=== PATIENT | female | born 1935 | race Caucasian/White ===

== ENCOUNTER 2022-04-05 16:03 | Inpatient (IN) ==
[2022-04-05] MEDS ORDERED: Heparin - STEMI 5,000 UNITS/ML 1 ml VIAL IV ONE (16:52)
[2022-04-05] MEDS ORDERED: Midazolam 5 mg/5 ml VIAL 1 mg/ml 5 ml VIAL (5 mg) ONE (16:57)
[2022-04-05] MEDS ORDERED: Heparin 1,000 UNIT/ML 10 ml (10,000 UNITS) CATHLAB/DIALYSIS ONE (16:57)
[2022-04-05] MEDS ORDERED: nitroGLYCERIN DRIP 25,000 MCG/250 ML BTL ONE (16:57)
[2022-04-05] MEDS ORDERED: Heparin 2 UNITS/ML 1000 mls 0 ML IV ONE (16:57)
[2022-04-05] MEDS ORDERED: VERAPAMIL 2.5 MG/ML 2 ML VIAL ** 5 mg/2 ml ONE (16:57)
[2022-04-05] MEDS ORDERED: fentaNYL 100 mcg/2 ml 50 MCG/ML VIAL ONE (16:57)
[2022-04-05] MEDS ORDERED: Iohexol 350 (CONTRAST) 100 ML PAK IV ONE (16:58)
[2022-04-05] MEDS ORDERED: Lidocaine 1% MPF 5 ML VIAL ONE (16:58)
[2022-04-05 17:13] LABS: ABS Eosinophils 0.1 10^3/ul (0-0.6); ABS Lymphocytes 0.8 10^3/ul (1.0-4.8); ABS Monocytes 0.9 10^3/ul (0-0.8); ABS Neutrophils 6.4 10^3/ul (1.5-7.7); Eosinophil % 1.2 %; Hematocrit 40 % (35-47); Hemoglobin 13.1 g/dL (12.0-16.0); Lymphocyte % 9.4 %; Mean Corpuscular HGB Conc 33 g/dL (31-36); Mean Corpuscular Hemoglobin 32 pg (27-31); Mean Corpuscular Volume 100 fL (80-97); Mean Platelet Volume 8.9 fL (7.4-10.4); Nucleated Red Blood Cells % 0.1; Platelet Count 205 10^3/uL (150-450); Red Blood Count 4.04 10^6 /uL (3.70-4.87); Red Cell Distribution Width 15 % (10-15); White Blood Count 8.2 10^3/uL (3.5-10.8)
[2022-04-05] MEDS ORDERED: Furosemide 40 mg/4 ml IV VIAL IV ONE (17:21)
[2022-04-05 17:27] LABS: Activated Partial Thrombo Time 35.7 seconds (26.0-38.0); INR 1.07 (0.89-1.11)
[2022-04-05] MEDS ORDERED: Heparin DRIP 25,000 UNITS BAG 25,000 UNITS/500 ML BAG IV SCH (17:30)
[2022-04-05 17:33] LABS: Albumin 4.2 g/dL (3.2-5.2); Calcium 9.7 mg/dL (8.6-10.3); Potassium 4.7 mmol/L (3.5-5.0)
[2022-04-05 17:39] LABS: Albumin/Globulin Ratio 1.6 (1-3); C Reactive Protein 8.72 mg/L (<8.01); Globulin 2.6 g/dL (2-4); Total Protein 6.8 g/dL (6.4-8.9); eGFR CKD-EPI 49.5 (>60)
[2022-04-05 18:22] LABS: PCO2 Arterial 33 mmHg (35-45); PO2 Arterial 93 mmHg (80-100)
[2022-04-05 18:33] LABS: High Sensitivity Troponin 1 Hr 75 pg/mL (<15)
[2022-04-05] MEDS ORDERED: PANCRELIPASE 24000 UNIT PO SCH (21:00)
[2022-04-05 21:52] LABS: Magnesium 1.9 mg/dL (1.9-2.7)
[2022-04-05 21:58] LABS: Phosphorus 3.8 mg/dL (2.5-5.0)
[2022-04-06 05:10] LABS: ABS Eosinophils 0.2 10^3/ul (0-0.6); ABS Monocytes 0.9 10^3/ul (0-0.8); ABS Neutrophils 4.8 10^3/ul (1.5-7.7); Eosinophil % 3.4 %; Hematocrit 37 % (35-47); Hemoglobin 11.9 g/dL (12.0-16.0); Lymphocyte % 14.6 %; Mean Corpuscular HGB Conc 32 g/dL (31-36); Mean Corpuscular Hemoglobin 31 pg (27-31); Mean Corpuscular Volume 98 fL (80-97); Mean Platelet Volume 8.8 fL (7.4-10.4); Platelet Count 175 10^3/uL (150-450); Red Blood Count 3.79 10^6 /uL (3.70-4.87); Red Cell Distribution Width 15 % (10-15); White Blood Count 7.1 10^3/uL (3.5-10.8)
[2022-04-06 05:37] LABS: Calcium 9.2 mg/dL (8.6-10.3); Potassium 4.1 mmol/L (3.5-5.0); eGFR CKD-EPI 48.5 (>60)
[2022-04-06] MEDS ORDERED: NON FORMULARY MED (Bisoprolol-Hydrochlorothiazide 10-6.25 mg tablet) PO SCH (09:00)
[2022-04-06] MEDS ORDERED: LINAGLIPTIN 5 MG PO SCH (09:00)
[2022-04-06] MEDS: NF: Pancrelipase 24,000 units (NF) PO SCH ×3 (09:43→17:09)
[2022-04-06] MEDS ORDERED: Furosemide 40 mg/4 ml IV VIAL IV ONE (10:37)
[2022-04-06] MEDS: PANCRELIPASE 24000 UNIT PO SCH (17:55)
[2022-04-06] MEDS: Nitroglycerin 0.2 mg/hr PATCH (5 mg) TRANSDERM SCH (18:01)
[2022-04-07] MEDS ORDERED: Acetaminophen IV 1 GM/100ML 1,000 MG/100 ML BAG IV PRN (03:50)
[2022-04-07 04:59] LABS: ABS Eosinophils 0.2 10^3/ul (0-0.6); ABS Lymphocytes 0.9 10^3/ul (1.0-4.8); ABS Monocytes 1.2 10^3/ul (0-0.8); ABS Neutrophils 6.4 10^3/ul (1.5-7.7); Hematocrit 37 % (35-47); Hemoglobin 12.1 g/dL (12.0-16.0); Mean Corpuscular HGB Conc 33 g/dL (31-36); Mean Corpuscular Hemoglobin 32 pg (27-31); Mean Corpuscular Volume 97 fL (80-97); Mean Platelet Volume 8.7 fL (7.4-10.4); Platelet Count 194 10^3/uL (150-450); Red Blood Count 3.82 10^6 /uL (3.70-4.87); Red Cell Distribution Width 15 % (10-15); White Blood Count 8.7 10^3/uL (3.5-10.8)
[2022-04-07 05:28] LABS: Calcium 8.9 mg/dL (8.6-10.3); Magnesium 1.6 mg/dL (1.9-2.7); Potassium 3.9 mmol/L (3.5-5.0); eGFR CKD-EPI 45.1 (>60)
[2022-04-07] MEDS ORDERED: Magnesium Sulfate 2 gm BAG 2 GM/50 ML BAG IVPB ONE (06:19)
[2022-04-07] MEDS ORDERED: Potassium Chlor 20 meq TAB.ER PO ONE (07:34)
[2022-04-07] MEDS ORDERED: Magnesium Sulfate IV 1GM/100ML 1 GM/100 ML BAG IV ONE (08:38)
[2022-04-07] MEDS ORDERED: Nitroglycerin 0.2 mg/hr PATCH (5 mg) TRANSDERM SCH (09:00)
[2022-04-07] MEDS: PANCRELIPASE 24000 UNIT PO SCH ×3 (09:16→17:47)
[2022-04-07 09:50] LABS: Ferritin 150.9 ng/mL (11-307)
[2022-04-07] MEDS: Nitroglycerin 0.2 mg/hr PATCH (5 mg) TRANSDERM SCH (17:47)
[2022-04-08 05:15] LABS: ABS Eosinophils 0.4 10^3/ul (0-0.6); ABS Lymphocytes 0.9 10^3/ul (1.0-4.8); ABS Monocytes 1.2 10^3/ul (0-0.8); ABS Neutrophils 6.1 10^3/ul (1.5-7.7); Eosinophil % 4.3 %; Hematocrit 39 % (35-47); Hemoglobin 12.6 g/dL (12.0-16.0); Lymphocyte % 10.6 %; Mean Corpuscular HGB Conc 33 g/dL (31-36); Mean Corpuscular Hemoglobin 32 pg (27-31); Mean Corpuscular Volume 98 fL (80-97); Platelet Count 202 10^3/uL (150-450); Red Blood Count 3.94 10^6 /uL (3.70-4.87); Red Cell Distribution Width 15 % (10-15); White Blood Count 8.6 10^3/uL (3.5-10.8)
[2022-04-08 05:48] LABS: Calcium 8.9 mg/dL (8.6-10.3); Magnesium 2.4 mg/dL (1.9-2.7); Potassium 4.1 mmol/L (3.5-5.0); eGFR CKD-EPI 41.7 (>60)
[2022-04-08] MEDS: PANCRELIPASE 24000 UNIT PO SCH ×3 (09:17→16:50)
[2022-04-08] MEDS ORDERED: Enoxaparin 40 MG/0.4 ML SYR SUBCUT SCH (10:00)
[2022-04-08] MEDS: Enoxaparin 30 MG/0.3 ML SYR SUBCUT SCH (13:05)
[2022-04-08] MEDS: Nitroglycerin 0.2 mg/hr PATCH (5 mg) TRANSDERM SCH (18:34)
[2022-04-09 07:54] LABS: ABS Eosinophils 0.3 10^3/ul (0-0.6); ABS Lymphocytes 0.7 10^3/ul (1.0-4.8); ABS Monocytes 1.1 10^3/ul (0-0.8); ABS Neutrophils 5.8 10^3/ul (1.5-7.7); Hematocrit 38 % (35-47); Hemoglobin 12.5 g/dL (12.0-16.0); Lymphocyte % 8.9 %; Mean Corpuscular HGB Conc 33 g/dL (31-36); Mean Corpuscular Hemoglobin 32 pg (27-31); Mean Corpuscular Volume 97 fL (80-97); Nucleated Red Blood Cells % 0.1; Platelet Count 174 10^3/uL (150-450); Red Blood Count 3.93 10^6 /uL (3.70-4.87); Red Cell Distribution Width 15 % (10-15)
[2022-04-09 08:00] LABS: Calcium 8.6 mg/dL (8.6-10.3); Magnesium 2.1 mg/dL (1.9-2.7); Potassium 4.1 mmol/L (3.5-5.0); eGFR CKD-EPI 54.9 (>60)
[2022-04-09] MEDS: PANCRELIPASE 24000 UNIT PO SCH ×3 (08:21→16:42)
[2022-04-09] MEDS: Enoxaparin 30 MG/0.3 ML SYR SUBCUT SCH (12:10)
[2022-04-09] MEDS: Calcium Carb (TUMS) 500 mg CHEW TAB PO SCH ×2 (18:10→20:34)
[2022-04-10 06:43] LABS: ABS Eosinophils 0.4 10^3/ul (0-0.6); ABS Lymphocytes 1.1 10^3/ul (1.0-4.8); ABS Monocytes 1.1 10^3/ul (0-0.8); ABS Neutrophils 5.5 10^3/ul (1.5-7.7); Eosinophil % 4.8 %; Hematocrit 42 % (35-47); Hemoglobin 13.7 g/dL (12.0-16.0); Lymphocyte % 13.5 %; Mean Corpuscular HGB Conc 33 g/dL (31-36); Mean Corpuscular Hemoglobin 32 pg (27-31); Mean Corpuscular Volume 99 fL (80-97); Mean Platelet Volume 8.5 fL (7.4-10.4); Platelet Count 213 10^3/uL (150-450); Red Blood Count 4.27 10^6 /uL (3.70-4.87); Red Cell Distribution Width 15 % (10-15); White Blood Count 8.1 10^3/uL (3.5-10.8)
[2022-04-10 07:41] LABS: Calcium 9.3 mg/dL (8.6-10.3); Phosphorus 3.7 mg/dL (2.5-5.0); Potassium 4.4 mmol/L (3.5-5.0); eGFR CKD-EPI 48.5 (>60)
[2022-04-10] MEDS ORDERED: Aminophylline 25 MG/ML VIAL ONE (08:58)
[2022-04-10] MEDS ORDERED: Regadenoson 0.4 MG/5 ML SYRINGE ONE (08:58)
[2022-04-10] MEDS ORDERED: Ondansetron 4 mg VIAL 2 MG/ML 2 ml VIAL ONE (09:24)
[2022-04-10] MEDS: PANCRELIPASE 24000 UNIT PO SCH ×3 (10:24→14:48)
[2022-04-10] MEDS: Enoxaparin 30 MG/0.3 ML SYR SUBCUT SCH (13:44)
[2022-04-10] MEDS: Iron Sucrose 200 MG in NS 0.9% 100 ml BAG 100 ML IVPB SCH (13:44)
[2022-04-10] MEDS: Magnesium Hydroxide LIQ 30 ML UDC PO PRN (23:28)
[2022-04-11 07:57] LABS: Calcium 9.1 mg/dL (8.6-10.3); Magnesium 2.1 mg/dL (1.9-2.7); Potassium 4.5 mmol/L (3.5-5.0); eGFR CKD-EPI 54.9 (>60)
[2022-04-11] MEDS: PANCRELIPASE 24000 UNIT PO SCH ×3 (10:12→17:15)
[2022-04-11] MEDS: Iron Sucrose 200 MG in NS 0.9% 100 ml BAG 100 ML IVPB SCH (16:38)
[2022-04-11] MEDS: Enoxaparin 30 MG/0.3 ML SYR SUBCUT SCH (16:40)
[2022-04-11] MEDS: Magnesium Hydroxide LIQ 30 ML UDC PO PRN (21:17)
[2022-04-12] MEDS ORDERED: Senna TAB 8.6 mg TAB PO ONE (07:43)
[2022-04-12] MEDS ORDERED: Furosemide 40 mg/4 ml IV VIAL IV ONE (10:08)
[2022-04-12] MEDS: PANCRELIPASE 24000 UNIT PO SCH ×3 (10:16→17:56)
[2022-04-12] MEDS: Enoxaparin 30 MG/0.3 ML SYR SUBCUT SCH (12:52)
[2022-04-12] MEDS: Iron Sucrose 200 MG in NS 0.9% 100 ml BAG 100 ML IVPB SCH (15:06)
[2022-04-13 07:05] LABS: Calcium 9.1 mg/dL (8.6-10.3); Magnesium 2.2 mg/dL (1.9-2.7); eGFR CKD-EPI 51.8 (>60)
[2022-04-13] MEDS: PANCRELIPASE 24000 UNIT PO SCH ×3 (08:24→16:16)
[2022-04-13] MEDS: Enoxaparin 30 MG/0.3 ML SYR SUBCUT SCH (12:26)
[2022-04-13] MEDS: Iron Sucrose 200 MG in NS 0.9% 100 ml BAG 100 ML IVPB SCH (16:17)
[2022-04-14 06:20] VITALS: BP 116/62
[2022-04-14] MEDS: PANCRELIPASE 24000 UNIT PO SCH (07:40)
== END 2022-04-14 09:14 | DRG 280 ==
LOC: ED 16:03 → SUATTDRO 18:29 → EDHOLD 18:29 → ICU 20:05 → MEDTELE 04-09 05:00
PROVIDERS: ADMIT Internal Medicine Critical Care Medicine; ATTEND Internal Medicine

== ENCOUNTER 2022-04-14 07:51 | Inpatient (IN) ==
[2022-04-14] MEDS: Enoxaparin 30 MG/0.3 ML SYR SUBCUT SCH (12:17)
[2022-04-14] MEDS: PTO:Pancrelipase 24,000 units (NF) PO SCH ×2 (12:19→16:43)
[2022-04-14] MEDS ORDERED: Iron Sucrose 200 MG in NS 0.9% 100 ml BAG 100 ML IVPB ONE (15:00)
[2022-04-14] MEDS: Senna TAB 8.6 mg TAB PO PRN (20:08)
[2022-04-14] MEDS: Magnesium Hydroxide LIQ 30 ML UDC PO PRN (20:09)
[2022-04-15 06:05] LABS: ABS Eosinophils 0.2 10^3/ul (0-0.6); ABS Lymphocytes 0.9 10^3/ul (1.0-4.8); ABS Monocytes 1.5 10^3/ul (0-0.8); ABS Neutrophils 5.8 10^3/ul (1.5-7.7); Eosinophil % 2.4 %; Hematocrit 41 % (35-47); Hemoglobin 13.9 g/dL (12.0-16.0); Lymphocyte % 10.7 %; Mean Corpuscular HGB Conc 34 g/dL (31-36); Mean Corpuscular Hemoglobin 33 pg (27-31); Mean Corpuscular Volume 97 fL (80-97); Mean Platelet Volume 8.7 fL (7.4-10.4); Platelet Count 200 10^3/uL (150-450); Red Blood Count 4.18 10^6 /uL (3.70-4.87); Red Cell Distribution Width 15 % (10-15); White Blood Count 8.4 10^3/uL (3.5-10.8)
[2022-04-15 06:45] LABS: Albumin 3.5 g/dL (3.2-5.2); Albumin/Globulin Ratio 1.5 (1-3); Calcium 9.1 mg/dL (8.6-10.3); Globulin 2.4 g/dL (2-4); Potassium 4.3 mmol/L (3.5-5.0); Total Protein 5.9 g/dL (6.4-8.9); eGFR CKD-EPI 51.2 (>60)
[2022-04-15] MEDS: PTO:Pancrelipase 24,000 units (NF) PO SCH ×3 (09:20→17:13)
[2022-04-15] MEDS: Enoxaparin 30 MG/0.3 ML SYR SUBCUT SCH (10:09)
[2022-04-15 10:35] LABS: Magnesium 2.3 mg/dL (1.9-2.7)
[2022-04-15] MEDS: Senna TAB 8.6 mg TAB PO PRN (21:04)
[2022-04-16] MEDS: PTO:Pancrelipase 24,000 units (NF) PO SCH ×3 (08:53→16:57)
[2022-04-16] MEDS: Enoxaparin 30 MG/0.3 ML SYR SUBCUT SCH (08:58)
[2022-04-16] MEDS: Magnesium Hydroxide LIQ 30 ML UDC PO PRN (09:03)
[2022-04-16] MEDS ORDERED: Polyethylene Glycol 3350 17 GM PACKET PO PRN (09:29)
[2022-04-17] MEDS: Enoxaparin 30 MG/0.3 ML SYR SUBCUT SCH (08:39)
[2022-04-17] MEDS: PTO:Pancrelipase 24,000 units (NF) PO SCH ×3 (08:40→16:58)
[2022-04-18] MEDS: PTO:Pancrelipase 24,000 units (NF) PO SCH ×4 (09:38→17:31)
[2022-04-18] MEDS: Enoxaparin 30 MG/0.3 ML SYR SUBCUT SCH (09:39)
[2022-04-19] MEDS: PTO:Pancrelipase 24,000 units (NF) PO SCH ×3 (09:04→17:15)
[2022-04-19] MEDS: Enoxaparin 30 MG/0.3 ML SYR SUBCUT SCH (09:09)
[2022-04-19 18:56] LABS: Urine Appearance Clear; Urine Bilirubin Negative (Negative); Urine Blood 2+ (Negative); Urine Color Yellow; Urine Glucose 3+(>=500 mg/dL) (Negative); Urine Ketones Negative (Negative); Urine Nitrite Negative (Negative); Urine Protein Negative (Negative); Urine Specific Gravity 1.006 (1.002-1.030); Urine Urobilinogen Negative (Negative)
[2022-04-19 19:08] LABS: Urine Bacteria 1+ (Absent); Urine Red Blood Cell 2+(6-10/hpf) (Absent); Urine Squamous Epithelial Cell Present (Absent); Urine White Blood Cell 1+(6-10/hpf) (Absent)
[2022-04-20] MEDS: PTO:Pancrelipase 24,000 units (NF) PO SCH ×3 (08:15→16:47)
[2022-04-20] MEDS: Enoxaparin 30 MG/0.3 ML SYR SUBCUT SCH (11:18)
[2022-04-21 05:44] VITALS: BP 102/61
[2022-04-21 07:35] LABS: ABS Eosinophils 0.3 10^3/ul (0-0.6); ABS Lymphocytes 0.6 10^3/ul (1.0-4.8); ABS Monocytes 0.9 10^3/ul (0-0.8); ABS Neutrophils 4.8 10^3/ul (1.5-7.7); Eosinophil % 4.1 %; Hematocrit 44 % (35-47); Hemoglobin 14.2 g/dL (12.0-16.0); Lymphocyte % 9.7 %; Mean Corpuscular HGB Conc 33 g/dL (31-36); Mean Corpuscular Hemoglobin 32 pg (27-31); Mean Corpuscular Volume 98 fL (80-97); Mean Platelet Volume 9.2 fL (7.4-10.4); Platelet Count 216 10^3/uL (150-450); Red Blood Count 4.47 10^6 /uL (3.70-4.87); Red Cell Distribution Width 15 % (10-15); White Blood Count 6.6 10^3/uL (3.5-10.8)
[2022-04-21 07:54] LABS: Albumin 3.7 g/dL (3.2-5.2); Albumin/Globulin Ratio 1.4 (1-3); Calcium 9.4 mg/dL (8.6-10.3); Globulin 2.6 g/dL (2-4); Potassium 4.5 mmol/L (3.5-5.0); Total Bilirubin 0.7 mg/dL (0.2-1.0); Total Protein 6.3 g/dL (6.4-8.9); eGFR CKD-EPI 46.5 (>60)
[2022-04-21] MEDS: PTO:Pancrelipase 24,000 units (NF) PO SCH (08:55)
[2022-04-21] MEDS: Enoxaparin 30 MG/0.3 ML SYR SUBCUT SCH (08:58)
== END 2022-04-21 12:45 | disposition home health service (06) | DRG 945 ==
LOC: PMRU 09:22
PROVIDERS: ADMIT Physical Medicine & Rehabilitation; ATTEND Physical Medicine & Rehabilitation

== ENCOUNTER 2023-01-10 10:56 | Inpatient (IN) ==
[2023-01-10] MEDS ORDERED: fentaNYL 100 mcg/2 ml 50 MCG/ML VIAL ONE (12:30)
[2023-01-10] MEDS ORDERED: Heparin 1,000 UNIT/ML 10 ml (10,000 UNITS) CATHLAB/DIALYSIS ONE (12:30)
[2023-01-10] MEDS ORDERED: Lidocaine 1% MPF 5 ML VIAL ONE (12:30)
[2023-01-10] MEDS ORDERED: Midazolam 5 mg/5 ml VIAL 1 mg/ml 5 ml VIAL (5 mg) ONE (12:30)
[2023-01-10] MEDS ORDERED: Iohexol 350 (CONTRAST) 100 ML PAK IV ONE (12:30)
[2023-01-10] MEDS ORDERED: Iohexol 350 (CONTRAST) 200 ML MDV IV ONE (12:30)
[2023-01-10] MEDS ORDERED: niCARdipine 0.1MG/ML IVPREMIX 0 MG/0 ML BAG IV ONE (12:30)
[2023-01-10] MEDS ORDERED: nitroGLYCERIN DRIP 0 MCG/0 ML BTL ONE (12:30)
[2023-01-10] MEDS ORDERED: Heparin 2 UNITS/ML 1000 mls 0 ML IV ONE (12:31)
[2023-01-10 12:55] LABS: ABS Eosinophils 0.1 10^3/uL (0.0-0.5); ABS Lymphocytes 0.6 10^3/uL (1.0-4.8); ABS Monocytes 0.8 10^3/uL (0.0-0.9); ABS Neutrophils 6.8 10^3/uL (1.5-7.6); ABS Nucleated RBC 0.01 10^3/ul; Eosinophil % 1.6 %; Hematocrit 41.1 % (35-45); Hemoglobin 13.5 g/dL (11.5-14.3); Lymphocyte % 7.1 %; Mean Corpuscular Hgb Conc 32.7 g/dL (31-36); Nucleated Red Blood Cells % 0.1 /100 WBC (0.0-0.4); Platelet Count 157 10^3/uL (150-450); Red Blood Count 3.96 10^6/uL (3.63-4.92); Red Cell Distribution Width 16.5 % (12-17); White Blood Count 8.4 10^3/uL (3.8-11.8)
[2023-01-10 13:06] LABS: ALT 19 U/L (7-52); Albumin 4.2 g/dL (3.2-5.2); Albumin/Globulin Ratio 1.8 (1-3); Alkaline Phosphatase 57 U/L (35-149); Blood Urea Nitrogen 64 mg/dL (6-24); CO2 Carbon Dioxide 19 mmol/L (22-32); Calcium 8.6 mg/dL (8.6-10.3); Chloride 114 mmol/L (101-111); Cholesterol 135 mg/dL; Creatine Kinase 79 U/L (10-223); Creatinine, Serum 1.42 mg/dL (0.51-0.95); Globulin 2.3 g/dL (2-4); Glucose 198 mg/dL (70-100); HDL Cholesterol 56.6 mg/dL; LDL Cholesterol 53 mg/dL; Sodium 141 mmol/L (135-145); Total Protein 6.5 g/dL (6.4-8.9); Triglycerides 129 mg/dL; eGFR CKD-EPI 36.2 (>60)
[2023-01-10 13:09] LABS: Activated Partial Thrombo Time 35.7 seconds (26.0-38.0); INR 1.2 (0.88-1.18)
[2023-01-10 13:14] LABS: Anion Gap 8 mmol/L (2-16)
[2023-01-10] MEDS ORDERED: Iodixanol (CONTRAST) 320 MG/ML 100 ML SDV IV ONE (13:24)
[2023-01-10 14:04] LABS: Direct Bilirubin Redraw 0.2 mg/dL (0.03-0.18); Potassium Redraw 5.1 mmol/L (3.5-5.0)
[2023-01-10 14:23] LABS: High Sens Troponin Baseline 93 pg/mL (<15)
[2023-01-10] MEDS ORDERED: Furosemide 20 mg/2 ml IV VIAL IV SLOW PU ONE (14:39)
[2023-01-10] MEDS ORDERED: Polyethylene Glycol 3350 17 GM PACKET PO PRN (16:48)
[2023-01-10] MEDS ORDERED: Ondansetron 4 mg VIAL 2 MG/ML 2 ml VIAL IV PRN (16:48)
[2023-01-10] MEDS ORDERED: Senna TAB 8.6 mg TAB PO PRN (16:48)
[2023-01-10] MEDS: Enoxaparin 30 MG/0.3 ML SYR SUBCUT SCH (18:02)
[2023-01-10] MEDS: Furosemide 40 mg/4 ml IV VIAL IV SLOW PU SCH (18:07)
[2023-01-10 18:25] LABS: Free T4 1.03 ng/dL (0.61-1.12); TSH Ultra Thyroid Stim Horm 3.43 mcIU/mL (0.34-5.60)
[2023-01-11 05:43] LABS: ABS Eosinophils 0.2 10^3/uL (0.0-0.5); ABS Lymphocytes 0.6 10^3/uL (1.0-4.8); ABS Monocytes 0.7 10^3/uL (0.0-0.9); ABS Neutrophils 4.6 10^3/uL (1.5-7.6); ABS Nucleated RBC 0.01 10^3/ul; Eosinophil % 2.6 %; Hematocrit 39.4 % (35-45); Hemoglobin 13.1 g/dL (11.5-14.3); Lymphocyte % 10.1 %; Mean Corpuscular Hgb Conc 33.3 g/dL (31-36); Mean Corpuscular Volume 102.1 fL (80-97); Mean Platelet Volume 9.9 fL (7.5-11.2); Nucleated Red Blood Cells % 0.1 /100 WBC (0.0-0.4); Platelet Count 160 10^3/uL (150-450); Red Blood Count 3.86 10^6/uL (3.63-4.92); Red Cell Distribution Width 16.1 % (12-17); White Blood Count 6.1 10^3/uL (3.8-11.8)
[2023-01-11 06:04] LABS: Calcium 8.8 mg/dL (8.6-10.3); Creatinine, Serum 1.43 mg/dL (0.51-0.95); Magnesium 2.2 mg/dL (1.9-2.7); Potassium 4.5 mmol/L (3.5-5.0); eGFR CKD-EPI 35.9 (>60)
[2023-01-11] MEDS ORDERED: PANCRELIPASE 3000 UNIT PO SCH (09:00)
[2023-01-11] MEDS: Furosemide 40 mg/4 ml IV VIAL IV SLOW PU SCH ×2 (09:49→17:27)
[2023-01-11] MEDS ORDERED: PANCRELIPASE 24000 UNIT PO SCH (12:10)
[2023-01-11] MEDS: PANCRELIPASE 24000 UNIT PO SCH ×2 (12:30→17:20)
[2023-01-11] MEDS: Enoxaparin 30 MG/0.3 ML SYR SUBCUT SCH (17:25)
[2023-01-12] MEDS: PANCRELIPASE 24000 UNIT PO SCH ×3 (08:09→17:57)
[2023-01-12 08:50] LABS: Calcium 8.9 mg/dL (8.6-10.3); Creatinine, Serum 1.59 mg/dL (0.51-0.95); Potassium 4.2 mmol/L (3.5-5.0); eGFR CKD-EPI 31.6 (>60)
[2023-01-12] MEDS: Enoxaparin 30 MG/0.3 ML SYR SUBCUT SCH (17:56)
[2023-01-13 06:49] LABS: Calcium 8.7 mg/dL (8.6-10.3); Creatinine, Serum 1.53 mg/dL (0.51-0.95); Potassium 4.6 mmol/L (3.5-5.0); eGFR CKD-EPI 33.1 (>60)
[2023-01-13] MEDS: PANCRELIPASE 24000 UNIT PO SCH ×3 (08:14→16:59)
[2023-01-13 09:39] LABS: Urine Appearance Clear; Urine Bilirubin Negative (Negative); Urine Blood Negative (Negative); Urine Color Yellow; Urine Glucose 1+(50 mg/dL) (Negative); Urine Ketones Negative (Negative); Urine Nitrite Negative (Negative); Urine Protein Negative (Negative); Urine Specific Gravity 1.012 (1.002-1.030); Urine Urobilinogen Negative (Negative)
[2023-01-13] MEDS: Enoxaparin 30 MG/0.3 ML SYR SUBCUT SCH (16:59)
[2023-01-13] MEDS: Calcium Polycarbophil 625mg TB PO SCH (22:06)
[2023-01-14] MEDS: PANCRELIPASE 24000 UNIT PO SCH ×3 (08:30→18:25)
[2023-01-14] MEDS: Calcium Polycarbophil 625mg TB PO SCH ×2 (11:54→21:26)
[2023-01-14] MEDS: CHOLESTYRAMINE PO SCH (14:14)
[2023-01-14] MEDS: [UNRECOGNIZED DRUG - OTHER] PO SCH (14:14)
[2023-01-14] MEDS: Enoxaparin 30 MG/0.3 ML SYR SUBCUT SCH (18:21)
[2023-01-15 06:42] LABS: ABS Eosinophils 0.2 10^3/uL (0.0-0.5); ABS Lymphocytes 0.7 10^3/uL (1.0-4.8); ABS Monocytes 1.2 10^3/uL (0.0-0.9); ABS Neutrophils 5.5 10^3/uL (1.5-7.6); ABS Nucleated RBC 0.01 10^3/ul; Eosinophil % 2.9 %; Hematocrit 38.7 % (35-45); Hemoglobin 13.1 g/dL (11.5-14.3); Lymphocyte % 8.7 %; Mean Corpuscular Hemoglobin 34.3 pg (27-33); Mean Corpuscular Hgb Conc 33.7 g/dL (31-36); Mean Corpuscular Volume 101.7 fL (80-97); Mean Platelet Volume 9.8 fL (7.5-11.2); Nucleated Red Blood Cells % 0.1 /100 WBC (0.0-0.4); Platelet Count 153 10^3/uL (150-450); Red Cell Distribution Width 15.6 % (12-17); White Blood Count 7.6 10^3/uL (3.8-11.8)
[2023-01-15 06:56] LABS: Calcium 9.1 mg/dL (8.6-10.3); Creatinine, Serum 1.25 mg/dL (0.51-0.95); Potassium 4.4 mmol/L (3.5-5.0); eGFR CKD-EPI 42.2 (>60)
[2023-01-15] MEDS: Calcium Polycarbophil 625mg TB PO SCH (10:11)
[2023-01-15] MEDS: PANCRELIPASE 24000 UNIT PO SCH ×2 (10:15→13:29)
[2023-01-15] MEDS: CHOLESTYRAMINE PO SCH (10:16)
[2023-01-15] MEDS: [UNRECOGNIZED DRUG - OTHER] PO SCH (10:16)
[2023-01-15 10:57] VITALS: BP 101/49
== END 2023-01-15 14:17 | disposition home or self-care (01) | DRG 291 ==
LOC: ED 10:56 → SUATTDRO 16:18 → EDHOLD 16:18 → MEDTELE 21:57
PROVIDERS: ADMIT Physician Assistant; ATTEND Internal Medicine

== ENCOUNTER 2023-07-12 18:00 | Inpatient (IN) ==
[2023-07-12 19:11] LABS: Hematocrit 44.6 % (35-45); Hemoglobin 14.7 g/dL (11.5-14.3); INR 1.16 (0.83-1.13); Mean Corpuscular Hemoglobin 34.7 pg (27-33); Mean Corpuscular Hgb Conc 32.9 g/dL (31-36); Mean Corpuscular Volume 105.5 fL (80-97); Mean Platelet Volume 9.3 fL (7.5-11.2); Platelet Count 207 10^3/uL (150-450); Red Blood Count 4.22 10^6/uL (3.63-4.92); Red Cell Distribution Width 15.2 % (12-17); White Blood Count 10.5 10^3/uL (3.8-11.8)
[2023-07-12 19:29] LABS: ABS Basophils 0.1 10^3/uL (0.0-0.1); ABS Eosinophils 0.1 10^3/uL (0.0-0.5); ABS Lymphocytes 0.9 10^3/uL (1.0-4.8); ABS Neutrophils 8.4 10^3/uL (1.5-7.6); ABS Nucleated RBC 0.02 10^3/ul; ALT 17 U/L (7-52); Albumin 4.3 g/dL (3.2-5.2); Albumin/Globulin Ratio 1.5 (1-3); Alkaline Phosphatase 58 U/L (35-149); Anion Gap 13 mmol/L (2-16); Blood Urea Nitrogen 41 mg/dL (6-24); CO2 Carbon Dioxide 24 mmol/L (22-32); Calcium 9.5 mg/dL (8.6-10.3); Chloride 104 mmol/L (101-111); Creatinine, Serum 1.26 mg/dL (0.51-0.95); Eosinophil % 1.3 %; Globulin 2.8 g/dL (2-4); Glucose 245 mg/dL (70-100); Lymphocyte % 8.4 %; Nucleated Red Blood Cells % 0.2 %/100WBC (0.0-0.8); Sodium 141 mmol/L (135-145); Total Bilirubin 0.9 mg/dL (0.2-1.0); Total Protein 7.1 g/dL (6.4-8.9); eGFR CKD-EPI 41.6 (>60)
[2023-07-12 19:33] LABS: High Sens Troponin Baseline 83 pg/mL (<15)
[2023-07-12 20:02] LABS: C Reactive Protein 6.96 mg/L (<8.01)
[2023-07-12 20:04] LABS: Potassium Redraw 4.4 mmol/L (3.5-5.0)
[2023-07-12 22:23] LABS: Urine Appearance Clear; Urine Bacteria Absent (Absent); Urine Bilirubin Negative (Negative); Urine Blood Negative (Negative); Urine Color Yellow; Urine Glucose 3+(>=500 mg/dL) (Negative); Urine Ketones Negative (Negative); Urine Nitrite Negative (Negative); Urine Protein 1+(30 mg/dL) (Negative); Urine Red Blood Cell Absent (Absent); Urine Specific Gravity 1.013 (1.002-1.030); Urine Squamous Epithelial Cell Present (Absent); Urine Urobilinogen Negative (Negative); Urine White Blood Cell 1+(6-10/hpf) (Absent)
[2023-07-12] MEDS ORDERED: Iodixanol (CONTRAST) 320 MG/ML 100 ML SDV IV ONE (23:56)
[2023-07-13] MEDS ORDERED: Furosemide 40 mg/4 ml IV VIAL IV ONE (01:39)
[2023-07-13] MEDS ORDERED: Magnesium Sulfate 2 gm BAG 2 GM/50 ML BAG IVPB ONE (04:23)
[2023-07-13] MEDS ORDERED: Dextrose 50% Syringe 50 ml 25 GM/50 ML SYRINGE IV PUSH PRN (05:25)
[2023-07-13 05:26] LABS: ABS Eosinophils 0.2 10^3/uL (0.0-0.5); ABS Lymphocytes 0.9 10^3/uL (1.0-4.8); ABS Monocytes 0.9 10^3/uL (0.0-0.9); ABS Neutrophils 9.3 10^3/uL (1.5-7.6); ABS Nucleated RBC 0.02 10^3/ul; Hematocrit 43.7 % (35-45); Hemoglobin 14.6 g/dL (11.5-14.3); Lymphocyte % 7.8 %; Mean Corpuscular Hemoglobin 34.6 pg (27-33); Mean Corpuscular Hgb Conc 33.4 g/dL (31-36); Mean Corpuscular Volume 103.7 fL (80-97); Mean Platelet Volume 8.9 fL (7.5-11.2); Nucleated Red Blood Cells % 0.2 %/100WBC (0.0-0.8); Platelet Count 199 10^3/uL (150-450); Red Blood Count 4.22 10^6/uL (3.63-4.92); Red Cell Distribution Width 14.9 % (12-17); White Blood Count 11.4 10^3/uL (3.8-11.8)
[2023-07-13] MEDS ORDERED: Bumetanide IV 0.25 MG/ML 4 ml VIAL (1 mg) IV SLOW PU SCH (06:00)
[2023-07-13 06:02] LABS: Albumin 3.9 g/dL (3.2-5.2); Albumin/Globulin Ratio 1.4 (1-3); Calcium 9.5 mg/dL (8.6-10.3); Creatinine, Serum 1.16 mg/dL (0.51-0.95); Globulin 2.8 g/dL (2-4); HDL Cholesterol 50.3 mg/dL; Potassium 4.1 mmol/L (3.5-5.0); Total Protein 6.7 g/dL (6.4-8.9); eGFR CKD-EPI 45.9 (>60)
[2023-07-13 06:03] LABS: Magnesium 2.1 mg/dL (1.9-2.7)
[2023-07-13 06:32] LABS: TSH Ultra Thyroid Stim Horm 2.41 mcIU/mL (0.34-5.60)
[2023-07-13] MEDS: Enoxaparin 30 MG/0.3 ML SYR SUBCUT SCH (06:45)
[2023-07-13] MEDS ORDERED: Pancrelipase 24,000 units (NF) PO SCH (07:30)
[2023-07-13] MEDS: Polyethylene Glycol 3350 17 GM PACKET PO SCH (10:20)
[2023-07-13] MEDS: PANCRELIPASE 24000 UNIT PO SCH ×3 (11:19→18:35)
[2023-07-13 13:33] LABS: Calcium 9.8 mg/dL (8.6-10.3); Creatinine, Serum 1.19 mg/dL (0.51-0.95); Potassium 4.1 mmol/L (3.5-5.0); eGFR CKD-EPI 44.5 (>60)
[2023-07-13] MEDS ORDERED: Bumetanide IV 0.25 MG/ML 4 ml VIAL (1 mg) IV SLOW PU ONE (13:53)
[2023-07-13] MEDS ORDERED: NS 0.9% 250 ml 250 ML IV SCH (16:00)
[2023-07-13] MEDS ORDERED: Lactated Ringers 1000 ml BAG 250 ML IV ONE (19:00)
[2023-07-13] MEDS ORDERED: Senna TAB 8.6 mg TAB PO SCH (21:00)
[2023-07-14] MEDS: Enoxaparin 30 MG/0.3 ML SYR SUBCUT SCH (05:13)
[2023-07-14] MEDS ORDERED: Bumetanide IV 0.25 MG/ML 4 ml VIAL (1 mg) IV SLOW PU SCH (09:00)
[2023-07-14] MEDS: Polyethylene Glycol 3350 17 GM PACKET PO SCH (09:17)
[2023-07-14] MEDS: PANCRELIPASE 24000 UNIT PO SCH (09:17)
[2023-07-14 09:34] LABS: Calcium 9.2 mg/dL (8.6-10.3); Creatinine, Serum 1.29 mg/dL (0.51-0.95); Potassium 3.7 mmol/L (3.5-5.0); eGFR CKD-EPI 40.4 (>60)
[2023-07-14 10:44] VITALS: BP 91/63
== END 2023-07-14 11:18 | disposition home or self-care (01) | DRG 291 ==
LOC: ED 18:00 → EDHOLD 07-13 04:00 → SUATTDRO 07-13 04:00 → MEDTELE 07-13 11:07
PROVIDERS: ADMIT Internal Medicine; ATTEND Hospitalist

== ENCOUNTER 2023-10-05 22:18 | Observation (INO) ==
[2023-10-05 23:35] LABS: ABS Basophils 0.1 10^3/uL (0.0-0.1); ABS Eosinophils 0.2 10^3/uL (0.0-0.5); ABS Lymphocytes 0.7 10^3/uL (1.0-4.8); ABS Monocytes 0.9 10^3/uL (0.0-0.9); ABS Neutrophils 7.8 10^3/uL (1.5-7.6); ABS Nucleated RBC 0.01 10^3/ul; Eosinophil % 2.2 %; Hematocrit 41.3 % (35-45); Hemoglobin 13.6 g/dL (11.5-14.3); Lymphocyte % 7.2 %; Mean Corpuscular Hemoglobin 34.1 pg (27-33); Mean Corpuscular Hgb Conc 32.9 g/dL (31-36); Mean Corpuscular Volume 103.4 fL (80-97); Mean Platelet Volume 9.1 fL (7.5-11.2); Nucleated Red Blood Cells % 0.1 %/100WBC (0.0-0.8); Platelet Count 207 10^3/uL (150-450); Red Cell Distribution Width 16.7 % (12-17); White Blood Count 9.7 10^3/uL (3.8-11.8)
[2023-10-05 23:45] LABS: Activated Partial Thrombo Time 34.8 seconds (26.0-38.0); INR 1.14 (0.83-1.13)
[2023-10-06 00:19] LABS: Albumin 4.2 g/dL (3.2-5.2); Albumin/Globulin Ratio 1.7 (1-3); C Reactive Protein 11.56 mg/L (<8.01); Calcium 9.7 mg/dL (8.6-10.3); Creatinine, Serum 1.3 mg/dL (0.51-0.95); Globulin 2.5 g/dL (2-4); Potassium 4.4 mmol/L (3.5-5.0); Total Bilirubin 0.6 mg/dL (0.2-1.0); Total Protein 6.7 g/dL (6.4-8.9)
[2023-10-06 00:30] LABS: Urine Appearance Clear; Urine Bacteria Absent /HPF (Absent); Urine Bilirubin Negative (Negative); Urine Blood Negative (Negative); Urine Color Light-Yellow; Urine Glucose 4+ (>=1000 mg/dL) (Negative); Urine Ketones Negative (Negative); Urine Nitrite Negative (Negative); Urine Protein 1+ (>=30 mg/dL) (Negative); Urine Red Blood Cell Trace(0-2/hpf) /HPF (0-Trace); Urine Squamous Epithelial Cell Present /HPF (Absent); Urine Urobilinogen Negative (Negative); Urine White Blood Cell 1+(6-10/hpf) /HPF (0-Trace)
[2023-10-06] MEDS: Iodixanol (CONTRAST) 320 MG/ML 100 ML SDV IV ONE (01:16)
[2023-10-06 01:20] LABS: High Sensitivity Troponin 1 Hr 72 pg/mL (<15)
[2023-10-06] MEDS: Furosemide 40 mg/4 ml IV VIAL IV ONE (03:25)
[2023-10-06] MEDS: Enoxaparin 30 MG/0.3 ML SYR SUBCUT SCH (03:33)
[2023-10-06 06:31] LABS: ABS Basophils 0.1 10^3/uL (0.0-0.1); ABS Eosinophils 0.4 10^3/uL (0.0-0.5); ABS Lymphocytes 1.1 10^3/uL (1.0-4.8); ABS Monocytes 1.2 10^3/uL (0.0-0.9); ABS Neutrophils 6.7 10^3/uL (1.5-7.6); ABS Nucleated RBC 0.01 10^3/ul; Eosinophil % 3.8 %; Hematocrit 38.9 % (35-45); Hemoglobin 12.9 g/dL (11.5-14.3); Lymphocyte % 11.6 %; Mean Corpuscular Hgb Conc 33.1 g/dL (31-36); Mean Corpuscular Volume 102.7 fL (80-97); Mean Platelet Volume 8.9 fL (7.5-11.2); Nucleated Red Blood Cells % 0.1 %/100WBC (0.0-0.8); Platelet Count 183 10^3/uL (150-450); Red Blood Count 3.79 10^6/uL (3.63-4.92); Red Cell Distribution Width 16.7 % (12-17); White Blood Count 9.4 10^3/uL (3.8-11.8)
[2023-10-06] MEDS: NF: Pancrelipase 24,000 units (NF) PO SCH (07:12)
[2023-10-06 07:16] LABS: Anion Gap 9 mmol/L (2-16); Blood Urea Nitrogen 53 mg/dL (6-24); CO2 Carbon Dioxide 30 mmol/L (22-32); Calcium 9.2 mg/dL (8.6-10.3); Chloride 102 mmol/L (101-111); Creatinine, Serum 1.18 mg/dL (0.51-0.95); Glucose 193 mg/dL (70-100); Magnesium 2.3 mg/dL (1.9-2.7); Sodium 141 mmol/L (135-145)
[2023-10-06 08:09] LABS: TSH Ultra Thyroid Stim Horm 1.99 mcIU/mL (0.34-5.60)
[2023-10-06 08:20] LABS: Vitamin B12 > 1450 pg/mL (180-914)
[2023-10-06 10:16] VITALS: BP 107/76
== END 2023-10-06 13:06 ==
LOC: ED 22:18 → EDHOLD 22:18 → SUATTDRO 10-06 02:20 → MEDTELE 10-06 07:42
PROVIDERS: ADMIT Internal Medicine; ATTEND Internal Medicine

== ENCOUNTER 2023-10-17 10:34 | Observation (INO) ==
[2023-10-17] MEDS ORDERED: nitroGLYCERIN DRIP 0 MCG/0 ML BTL ONE (10:41)
[2023-10-17] MEDS ORDERED: Heparin 2 UNITS/ML 1000 mls 0 ML IV ONE (10:41)
[2023-10-17 10:59] LABS: ABS Basophils 0.1 10^3/uL (0.0-0.1); ABS Lymphocytes 0.2 10^3/uL (1.0-4.8); ABS Monocytes 0.6 10^3/uL (0.0-0.9); ABS Neutrophils 7.6 10^3/uL (1.5-7.6); ABS Nucleated RBC 0.03 10^3/ul; Hematocrit 44.6 % (35-45); Hemoglobin 14.4 g/dL (11.5-14.3); Lymphocyte % 2.8 %; Mean Corpuscular Hemoglobin 33.8 pg (27-33); Mean Corpuscular Hgb Conc 32.2 g/dL (31-36); Mean Platelet Volume 9.4 fL (7.5-11.2); Nucleated Red Blood Cells % 0.3 %/100WBC (0.0-0.8); Platelet Count 227 10^3/uL (150-450); Red Blood Count 4.24 10^6/uL (3.63-4.92); Red Cell Distribution Width 18.3 % (12-17); White Blood Count 8.5 10^3/uL (3.8-11.8)
[2023-10-17] MEDS: Albuterol 2.5mg/3 ml (0.083%) NEB.SOLN INH ONE (11:14)
[2023-10-17] MEDS: methylPREDNISolone SOD SUCC 125 mg 2 ML VIAL IV ONE (11:24)
[2023-10-17 11:29] LABS: Albumin 4.2 g/dL (3.2-5.2); Albumin/Globulin Ratio 1.4 (1-3); C Reactive Protein 39.13 mg/L (<8.01); Calcium 9.9 mg/dL (8.6-10.3); Creatinine, Serum 1.45 mg/dL (0.51-0.95); Potassium 5.4 mmol/L (3.5-5.0); Total Bilirubin 1.2 mg/dL (0.2-1.0); Total Protein 7.2 g/dL (6.4-8.9); eGFR CKD-EPI 35.1 (>60)
[2023-10-17 12:27] LABS: High Sensitivity Troponin 1 Hr 100 pg/mL (<15)
[2023-10-17] MEDS: Furosemide 40 mg/4 ml IV VIAL IV ONE (15:05)
[2023-10-17] MEDS: Enoxaparin 30 MG/0.3 ML SYR SUBCUT SCH (15:05)
[2023-10-17] MEDS: Iodixanol (CONTRAST) 320 MG/ML 100 ML SDV IV ONE (15:50)
[2023-10-17] MEDS ORDERED: Albuterol/Ipratropium NEB.SOL (2.5/0.5 MG) 3 ML NEB.SOLN INH PRN (17:23)
[2023-10-17] MEDS: Pancrelipase 5,000 units CAP PO SCH (18:02)
[2023-10-17] MEDS ORDERED: Dextrose 50% Syringe 50 ml 25 GM/50 ML SYRINGE IV PUSH PRN (18:54)
[2023-10-17 19:06] LABS: Magnesium 2.3 mg/dL (1.9-2.7); Phosphorus 5.1 mg/dL (2.5-5.0)
[2023-10-17 19:14] LABS: High Sensitivity Troponin 1 Hr 223 pg/mL (<15)
[2023-10-17] MEDS: Albuterol/Ipratropium NEB.SOL (2.5/0.5 MG) 3 ML NEB.SOLN INH SCH (19:22)
[2023-10-17] MEDS: NS 0.9% 500 ml BAG 500 ML IV ONE (19:53)
[2023-10-17] MEDS: SODIUM ZIRCONIUM CYCLOSILICATE 10 GM PACKET PO ONE (20:51)
[2023-10-17 21:37] LABS: Ur Squamous Epithelial No Cx Present /HPF (Absent); Urine Appearance No Cx Clear (Clear); Urine Bacteria No Culture Absent /HPF (Absent); Urine Bilirubin No Culture Negative (Negative); Urine Blood No Culture Negative (Negative); Urine Color No Culture Colorless; Urine Glucose No Culture 4+ (>=1000 mg/dL) (Negative); Urine Ketones No Culture Negative (Negative); Urine Leukocytes No Culture Negative Leu/uL (Negative); Urine Nitrite No Culture Negative (Negative); Urine Protein No Culture Negative (Negative); Urine Red Blood Cell No Cult Trace(0-2/hpf) /HPF (0-Trace); Urine Urobilinogen No Cx Negative (Negative); Urine White Blood Cell No Cult Trace(0-5/hpf) /HPF (0-Trace)
[2023-10-18] MEDS: Albuterol/Ipratropium NEB.SOL (2.5/0.5 MG) 3 ML NEB.SOLN INH PRN (02:12)
[2023-10-18 08:35] LABS: Hematocrit 39.5 % (35-45); Hemoglobin 12.8 g/dL (11.5-14.3); Mean Corpuscular Hemoglobin 33.9 pg (27-33); Mean Corpuscular Hgb Conc 32.5 g/dL (31-36); Mean Corpuscular Volume 104.1 fL (80-97); Mean Platelet Volume 9.1 fL (7.5-11.2); Platelet Count 197 10^3/uL (150-450); Red Blood Count 3.79 10^6/uL (3.63-4.92); Red Cell Distribution Width 18.1 % (12-17); White Blood Count 11.9 10^3/uL (3.8-11.8)
[2023-10-18 08:53] LABS: Creatinine, Serum 1.55 mg/dL (0.51-0.95); Magnesium 2.2 mg/dL (1.9-2.7); Potassium 3.6 mmol/L (3.5-5.0); eGFR CKD-EPI 32.4 (>60)
[2023-10-18] MEDS: CREON 24000 UNIT PO SCH (11:48)
[2023-10-18] MEDS: Acetaminophen IV 1 GM/100ML 1,000 MG/100 ML BAG IV ONE (21:05)
[2023-10-19] MEDS: Acetaminophen IV 1 GM/100ML 1,000 MG/100 ML BAG IV ONE (04:40)
[2023-10-19 10:17] VITALS: BP 110/78
== END 2023-10-19 11:50 | disposition hospice, home (50) ==
LOC: EDHOLD 10:34 → ED 10:34 → EDHOLD 18:24 → MEDTELE 18:31
PROVIDERS: ADMIT Internal Medicine; ATTEND Internal Medicine